=== PATIENT | male | born 1975 | race Caucasian/White ===

== ENCOUNTER 2023-09-24 08:13 | Day surgery (SDC) | payer OTHER, SELFPAY ==
--- NOTE | 2023-09-24 08:52 | PM.HP.1 ---
History of Present Illness History of Present Illness Date Patient Seen: 09/24/23 Time Patient Seen: 08:52 Chief complaint: Screening Colonoscopy Narrative: 48-year-old man here for screening colonoscopy. He has a history of diverticulitis and had a previous colonoscopy approximally 20 years ago which was normal with the exception of diverticular disease. No family history of colon cancer. No abdominal concerns today including pain, unintentional weight loss, blood per rectum. [facility] Medical History (Updated 01/12/20 @ 17:02 by Maria Alejandra Cobian PA-C) Finger laceration Social History Smoking Status: Never smoker Meds Home Medications and Allergies Home Medications Medication Instructions Recorded Confirmed Type sodium,potassium,mag sulfates 17.5 See Rx Instructions PO .COMPLEX 08/02/23 Rx gram-3.13 gram-1.6 gram oral soln #354 mL (Suprep Bowel Prep Kit) Allergies Allergy/AdvReac Type Severity Reaction Status Date / Time Penicillins AdvReac Intermediate rash Verified 01/12/20 16:57 Exam Narrative Exam Narrative: General adult man alert oriented no acute distress Chest nonlabored respiration Extremities warm well perfused Assessment & Plan Assessment & Plan narrative: The patient requires colorectal screening and colonoscopy is recommended. Technical details were discussed. Risks, benefits, alternatives explained. Risks including but not limited to myocardial infarction, aspiration, bleeding, pain, missed lesion, incomplete examination, need for further radiographic studies, colonic perforation, and need for major abdominal surgery were discussed. All questions were answered to their satisfaction, and they are in agreement with this plan.
[2023-09-24 09:09] VITALS: BP 129/76; PULSE 74; RESP 16; TEMP 36.3; O2SAT 98; BMI 30.7
[2023-09-24] MEDS: LACTATED RINGERS 1,000 ML 42 ML IV (09:09)
[2023-09-24 09:39] VITALS: BP 113/76; PULSE 73; RESP 17; TEMP 36.5; O2SAT 94
--- NOTE | 2023-09-24 09:41 | P.OP.COLON_ITS ---
Operative Date/Time/Diagnoses Date of procedure: 09/24/23 Time of procedure: 09:41 Pre-op diagnosis: History of diverticulitis Procedure & Clinicians Study performed: Colonoscopy Same procedure as scheduled: Yes Indications: Colorectal screening Surgeon: Billy Vizcarra Procedure Notes Procedure in detail: The history and physical was performed/updated and the patient is ASA class is 1. The procedure was discussed in detail with the patient. Potential risks complications including infection, bleeding, missed diagnosis, perforation, need for surgery, and were explained. Their questions were answered and informed consent was obtained. Patient was brought to the procedure room and placed standard monitoring equipment. The patient's vital signs were monitored continuously throughout the entire procedure. Prior to starting time-out was performed. The patient was placed in the left lateral recumbent position. Procedural sedation was administered by anesthesia. Examination began with a thorough inspection of the perianal area there was no evidence of fissures, fistulae, external hemorrhoids or cutaneous malignancy. The colonoscopy scope was then placed into the anal canal and was advanced to the cecum, which was identified by the ileocecal v alve, the appendiceal orifice and the confluence of the taenia. The scope was then slowly withdrawn examining colon thoroughly in all directions, irrigating it of any residual stool. The scope was retroflexed within the rectum The patient tolerated the procedure well. They will be discharged once criteria are met. The prep was of good/excellent quality. The withdrawl time was 7 minutes. FINDINGS * Normal healthy colon. * No masses, polyps, inflammation * No significant diverticulosis Specimen(s): none sent Impression: Normal colonoscopy Post-procedure Recommendations: Colonoscopy in 10 years and High fiber diet Disposition: same day surgery
[2023-09-24 09:45] VITALS: BP 110/80; PULSE 78; RESP 17; TEMP 36.5; O2SAT 96
[2023-09-24 09:50] VITALS: BP 123/85; PULSE 76; RESP 19; TEMP 36.4; O2SAT 96
[2023-09-24 09:54] VITALS: BP 132/90; PULSE 74; RESP 16; TEMP 36.5; O2SAT 96
== END 2023-09-24 10:15 | disposition home or self-care (01) ==
PROVIDERS: PCP Registered Nurse; Referring Provider Surgery; Visit Provider Surgery
PROC: 0DJD8ZZ Inspection of Lower Intestinal Tract, Via Natural or Artificial Opening Endoscopic (ICD-10-PCS; CPT 45378; principal; 2023-09-24 09:30)
DX: Z12.11 Encounter for screening for malignant neoplasm of colon (principal); Z87.19 Personal history of other diseases of the digestive system
CPT/HCPCS: 45378; J2704

== ENCOUNTER → 2023-11-15 10:35 | Outpatient (CLI) | payer OTHER, SELFPAY ==
--- NOTE | 2023-11-15 | DI.MRI.S_ITS ---
PROCEDURE: MR CERVICAL SPINE WO CON INDICATIONS: CERVICAL STRAIN TECHNIQUE: Noncontrast sagittal T1 spin echo and T2 fast spin echo, sagittal STIR, foraminal oblique sagittal T2 fast spin echo, and axial gradient echo or T2 fast spin echo through the cervical spine. COMPARISON: None. FINDINGS: Image quality: Excellent. Alignment and Curvature: There is overall straightening of the normal cervical lordosis. No focal AP alignment abnormality is seen. Bone Marrow: Marrow demonstrates normal overall signal. Spinal Cord: Visualized spinal cord has normal size and signal. No cerebellar tonsillar herniation. Paraspinous Soft Tissues: No paravertebral masses. Prevertebral soft tissues are normal in thickness. C2-C3: Normal appearance. C3-C4: Normal appearance. C4-C5: The disc height and disk signal are relatively well-preserved. A mild degree of generalized disc osteophyte complex is seen. Mild to moderate facet hypertrophy can be seen. Minimal bilateral neural foraminal narrowing can be seen. No significant central canal narrowing is seen. C5-C6: The disc height and disk signal are relatively well-preserved. Moderate disc osteophyte complex is seen, which is eccentric to the right. There is a right foraminal disc osteophyte protrusion, as on series 4, image 33. There is moderate bilateral neural foraminal narrowing seen at this level. No significant central canal narrowing is seen. C6-C7: The disc height and disk signal are relatively well-preserved. A mild degree of generalized disc osteophyte complex is seen. Mild facet joint hypertrophy is seen. No significant neural foraminal or central canal narrowing can be seen. C7-T1: Normal appearance. IMPRESSION: Spine degenerative changes are seen, which are overall worst at the C5-C6 level. Straightening of the normal cervical lordosis is seen, which is commonly observed in patients with muscular spasm. Dictated by: Carlos Whipple M.D. on 11/15/2023 at 16:43 Approved by: Carlos Whipple M.D. on 11/15/2023 at 16:45
== END ==
PROVIDERS: PCP Registered Nurse; Referring Provider Registered Nurse; Visit Provider Registered Nurse
DX: M47.812 Spondylosis without myelopathy or radiculopathy, cervical region (principal); R29.898 Other symptoms and signs involving the musculoskeletal system
CPT/HCPCS: 72141

== ENCOUNTER → 2024-07-24 10:04 | Outpatient (CLI) | payer OTHER, SELFPAY ==
--- NOTE | 2024-07-24 10:06 | DI.RAD.S_ITS ---
PROCEDURE: XR FOOT LT 2V INDICATIONS: FOOT PAIN TECHNIQUE: 2 weight-bearing views of the foot were acquired. COMPARISON: None. FINDINGS: Bones: No fractures or dislocations. No suspicious bony lesions. Mild degenerative changes are seen. Plantar and Achilles calcaneal spurs are seen. Soft tissues: No tibiotalar joint effusion. Achilles tendon appears normal. IMPRESSION: Mild generalized degenerative changes are seen, including plantar and Achilles calcaneal spurs. Dictated by: Carlos Whipple M.D. on 07/25/2024 at 14:15 Approved by: Carlos Whipple M.D. on 07/25/2024 at 14:15
== END ==
LOC: RAD 10:05
PROVIDERS: PCP Registered Nurse; Referring Provider Registered Nurse; Visit Provider Registered Nurse
DX: M77.32 Calcaneal spur, left foot (principal); M79.672 Pain in left foot
CPT/HCPCS: 73620